=== PATIENT | female | born 2000 | race Two or more races ===

== ENCOUNTER 2023-08-05 16:49 | Emergency (ER) | payer OTHER ==
[~2023-08-05] VITALS: Ht 160 cm; Wt 54.4 kg
[2023-08-05] MEDS ORDERED: AMOX-427 PO (17:13)
[2023-08-05] MEDS ORDERED: HYDR-4209 PO (17:13)
[2023-08-05] MEDS ORDERED: CHLO473M7 MM (17:14)
[2023-08-05] MEDS ORDERED: OXYCODONE/APAP 5-325 MG TABLET ONE (17:24)
[2023-08-05] MEDS: OXYCODONE/APAP 5-325 MG TABLET PO ONE (17:29)
[2023-08-05 17:34] VITALS: BP 102/74; O2SAT 99
== END 2023-08-05 17:35 | disposition home or self-care (01) ==
LOC: ER 16:51
DX: K08.89 Other specified disorders of teeth and supporting structures (principal); Z79.899 Other long term (current) drug therapy
CPT/HCPCS: A4606; A4663

== ENCOUNTER 2024-02-09 17:21 | Emergency (ER) | payer OTHER ==
[~2024-02-09] VITALS: Ht 157.5 cm; Wt 45.4 kg
[~2024-02-09 17:21] MED LIST: AMOX-427 PO; CHLO473M7 MM; HYDR-4209 PO
[2024-02-09] MEDS: IV NORMAL SALINE 500 ML BAG IV ONE (18:10)
[2024-02-09 18:17] LABS: BASOPHILS % (AUTO) 0.4 % (0.0-2.0); EOSINOPHILS # (AUTO) 0.1 K/uL (0.0-0.7); EOSINOPHILS % (AUTO) 1.5 % (0.0-7.0); HEMATOCRIT 37.9 % (31.2-41.9); HEMOGLOBIN 13.4 g/dL (10.9-14.3); LYMPHOCYTES # (AUTO) 2.1 K/uL (0.8-4.8); LYMPHOCYTES % (AUTO) 40.3 % (20.5-51.5); MEAN CORPUSCULAR HEMOGLOBIN 28.7 uug (24.7-32.8); MEAN CORPUSCULAR HGB CONC 35 g/dL (32.3-35.6); MEAN CORPUSCULAR VOLUME 81.2 fL (75.5-95.3); MONOCYTES # (AUTO) 0.7 K/uL (0.1-1.30); MONOCYTES % (AUTO) 13.4 % (0.0-11.0); NEUTROPHILS # (AUTO) 2.3 K/uL (1.8-8.9); NEUTROPHILS % (AUTO) 44.4 % (38.5-71.5); PLATELET COUNT (AUTO) 329 K/uL (179-408); RED BLOOD CELL COUNT(AUTO) 4.67 MIL/uL (3.63-4.92); RED CELL DISTRIBUTION WIDTH 14.7 % (12.3-17.7); WHITE BLOOD COUNT (AUTO) 5.2 K/uL (3.8-11.8)
[2024-02-09 18:20] LABS: DIFFERENTIAL COMMENT 1
[2024-02-09 18:37] LABS: ALBUMIN 3.7 g/dL (3.4-5.0); BILIRUBIN,DIRECT 0.1 mg/dL (0.0-0.2); BILIRUBIN,TOTAL 0.5 mg/dL (0.2-1.0); CALCIUM 9.4 mg/dL (8.5-10.1); CREATININE 0.6 mg/dL (0.6-1.3); TOTAL PROTEIN, SERUM 7.5 g/dL (6.4-8.2)
[2024-02-09 18:38] LABS: POTASSIUM 2.4 mmol/L (3.5-5.1)
[2024-02-09] MEDS ORDERED: methylPREDNISolone SOD SUCC 125 MG/2 ML VIAL ONE (19:02)
[2024-02-09] MEDS ORDERED: POTASSIUM BICARBONATE/CIT AC 25 MEQ TABLET.EFF ONE (19:02)
[2024-02-09] MEDS ORDERED: POTASSIUM CHLORIDE 50 ML ONE (19:02)
[2024-02-09] MEDS ORDERED: METOCLOPRAMIDE HCL 10 MG/2 ML VIAL ONE (19:03)
[2024-02-09] MEDS ORDERED: ALBUTEROL SULFATE 2.5 MG/3 ML NEBU ONE (19:04)
[2024-02-09] MEDS ORDERED: IPRATROPIUM BROMIDE 0.5 MG/2.5 ML NEBU ONE (19:04)
[2024-02-09 19:05] VITALS: O2SAT 98
[2024-02-09] MEDS: METOCLOPRAMIDE HCL 10 MG/2 ML VIAL IV ONE (19:10)
[2024-02-09] MEDS: POTASSIUM CHLORIDE 50 ML IV ONE (19:10)
[2024-02-09] MEDS: methylPREDNISolone SOD SUCC 125 MG/2 ML VIAL IV ONE (19:10)
[2024-02-09] MEDS: POTASSIUM BICARBONATE/CIT AC 25 MEQ TABLET.EFF PO ONE (19:10)
[2024-02-09] MEDS: IPRATROPIUM BROMIDE 0.5 MG/2.5 ML NEBU NEB ONE (19:12)
[2024-02-09] MEDS: ALBUTEROL SULFATE 2.5 MG/3 ML NEBU NEB ONE (19:12)
[2024-02-09 19:18] VITALS: O2SAT 98
[2024-02-09 19:20] VITALS: O2SAT 99
== END 2024-02-09 19:30 | disposition left against medical advice (07) ==
LOC: ER 18:11
DX: J20.9 Acute bronchitis, unspecified (principal); E87.6 Hypokalemia; F17.200 Nicotine dependence, unspecified, uncomplicated; Z20.822 Contact with and (suspected) exposure to COVID-19; Z79.899 Other long term (current) drug therapy; Z88.7 Allergy status to serum and vaccine
CPT/HCPCS: 99284; 96365; 96375; 71045; 96361; 87426; 87804 ×2; 80076; 80048; 83880; 83735; 85025; 87040; 36415; 94640; 83605; J2919; J2765; J3480; J7040 ×2; A4606; A4663; J3590